=== PATIENT | female | born 1995 | race American Indian/Alaskan Native ===

== ENCOUNTER 2017-12-25 21:01 | Emergency (ER) | payer SELFPAY ==
[2017-12-25 21:09] VITALS: BP 129/68
== END 2017-12-26 01:08 | disposition left against medical advice (07) ==
LOC: ED 21:01
DX: N89.8 Other specified noninflammatory disorders of vagina (principal); Z53.21 Procedure and treatment not carried out due to patient leaving prior to being seen by health care provider